=== PATIENT | female | born 2000 | race Caucasian/White ===

== ENCOUNTER 2019-08-17 19:31 | Emergency (ER) | payer SELFPAY ==
[2019-08-17] MEDS ORDERED: DEXAMETHASONE 10 MG/ML VIAL PO STA (20:15)
[2019-08-17] MEDS ORDERED: KETOROLAC 60 MG/2 ML VIAL IM STA (20:15)
[2019-08-17] MEDS ORDERED: CHERRY SYRUP 10 ML UDC PO ONE (20:15)
--- NOTE | 2019-08-17 20:19 | ED Physician Documentation ---
History of Present Illness - Stated complaint Stated Complaint: L HIP PX - Chief complaint Chief Complaint: Ext Problem - History obtained from History obtained from: Patient, Friend - History of Present Illness Timing: How many days ago (2) - Additonal information Additional information: 18-year-old female with a history of patellar subluxation has been on her feet working at [employer] more than usual and 2 days ago at work she began to get pain in her left hip. Pain progressed enough that she had to call off work for the last 2 hours of work. She had to call off work yesterday as well. She was not able to bear weight without significant pain. She comes in now with 7 out of 10 pain to the left hip that is worse with weightbearing and improved with d isuse. She does not have a history of injury to the hip. Review of Systems Constitutional: denies: Fever Ears: denies: Ear pain Nose: denies: Congestion Throat: denies: Sore throat Respiratory: denies: Cough GI: denies: Vomiting PD PAST MEDICAL HISTORY - Past Medical History Past Medical History: Yes Psych: Depression, Anxiety - Past Surgical History Past Surgical History: No - Present Medications Home Medications: Ambulatory Orders Medication Instructions Recorded Confirmed Hydrocodone/Acetaminophen 1 - 2 each PO Q6H PRN #14 tablet 08/17/19 [Hydrocodon-Acetaminophen 5-325] - Allergies Allergies/Adverse Reactions: Allergies Allergy/AdvReac Type Severity Reaction Status Date / Time No Known Drug Allergies Allergy Verified 08/17/19 19:44 - Social History Does the pt smoke?: Yes Smoking Status: Current every day smoker Does the pt drink ETOH?: No Does the pt have substance abuse?: No - Immunizations Immunizations are current?: Yes - POLST Patient has POLST: No PD ED PE NORMAL - Vitals Vital signs reviewed: Yes (hypertensive) - General General: Alert and oriented X 3, No acute distress, Well developed/nourished, Other (18-year-old female with a broad smile on her face and bright green hair does not appear to be in any significant distress) - HEENT HEENT: Atraumatic, PERRL - Respiratory Respiratory: No respiratory distress - Extremities Extremities: No deformity, No edema, Other (There is mild tenderness to the trochanter on direct palpation there is no significant tenderness to the lower lumbar spine or into the sciatic notch.) - Neuro Neuro: Alert and oriented X 3, health assistant 2-12 intact, No motor deficit, No sensory deficit, Normal speech Eye Opening: Spontaneous Motor: Obeys Commands Verbal: Oriented GCS Score: 15 - Psych Psych: Normal mood, Normal affect Results - Vitals Vitals: Vital Signs - 24 hr 08/17/19 08/17/19 19:41 21:01 Temperature 37.2 C 36.5 C Heart Rate 91 97 Respiratory 16 16 Rate Blood Pressure 141/95 H 116/61 O2 Saturation 100 97 Oxygen O2 Source Room air - Rads (name of study) hip Radiology: Prelim report reviewed (Impression: No acute osseous abnormality.), EMP read indepedently, See rad report (Impression: No acute osseous abnormality.) PD MEDICAL DECISION MAKING - ED course Complexity details: reviewed results, re-evaluated patient, considered differential, d/w patient, d/w family ED course: 18-year-old female with pain in her left hip after standing at work excessively has some skeletal abnormality with a subluxing left patella and she appears to have trochanteric bursitis. She is administered dexamethasone and Toradol with improvement we will take her off work for 3 days. Departure - Departure Disposition: Home, Self Care Clinical Impression: Bursitis Qualifiers: Bursitis location: hip Hip bursitis location: trochanteric bursitis Laterality: left Qualified Code(s): M70.62 - Trochanteric bursitis, left hip Condition: Stable Instructions: ED Bursitis Follow-Up: [facility] [Provider Group] Prescriptions: Hydrocodone/Acetaminophen [Hydrocodon-Acetaminophen 5-325] 1 - 2 each PO Q6H PRN #14 tablet PRN Reason: pain Forms: Activity restrictions
--- NOTE | 2019-08-17 20:47 | XRAY Report ---
Reason: spontaneous left hip pain Procedure Date: 08/17/2019 Accession Number: [id number] / [id number] Procedure: XR - Hip w/Pelvis 2-3V LT CPT Code: Final Report FULL RESULT: EXAM: LEFT HIP RADIOGRAPHY EXAM DATE: 08/17/2019 08:20 PM. CLINICAL HISTORY: Spontaneous left hip pain. COMPARISON: None. TECHNIQUE: 2 views. FINDINGS: Bones: No acute fracture. No suspicious osseous lesion. Joints: No significant joint space narrowing. No left hip dislocation. Other: IUD present in the midline lower pelvis. IMPRESSION: No acute osseous abnormality. [facility]
[2019-08-17 21:02] VITALS: BP 116/61
== END 2019-08-17 21:20 | disposition home or self-care (01) ==
LOC: ED 19:31
DX: M70.62 Trochanteric bursitis, left hip (principal); F17.200 Nicotine dependence, unspecified, uncomplicated
CPT/HCPCS: 73502; 96372; 99283; 99284; A9270